=== PATIENT | male | born 1945 | race Caucasian/White ===

== ENCOUNTER 2018-10-25 16:09 | Outpatient (REF) | payer MEDICARE, MEDICAID, SELFPAY ==
[2018-10-25 19:53] LABS: C-Reactive Protein 6.04 mg/dL (0.0-0.3); CREATININE 0.73 mg/dL (0.70-1.30); Uric Acid 4.6 mg/dL (3.5-7.2)
[2018-10-25 20:05] LABS: Hemoglobin A1C 6.2 % (4.5-6.2)
[2018-10-25 21:20] LABS: ESR 23 mm/hr (1-20)
== END 2018-10-25 16:29 ==
LOC: NCHCN 16:09
PROVIDERS: PCP Physician Assistant; Visit Provider Internal Medicine
DX: M11.80 Other specified crystal arthropathies, unspecified site (principal); R73.03 Prediabetes
CPT/HCPCS: 85652; 82565; 83036; 84550; 86140

== ENCOUNTER 2019-01-15 10:02 | Outpatient (CLI) | payer MEDICARE, MEDICAID, SELFPAY ==
--- NOTE | 2019-01-15 06:00 | DI.RAD_ITS ---
EXAM: XR PAIN CLINIC LUMBAR SP 2V CLINICAL HISTORY: Lumbar Epidural Steroid injection, Lumbar radiculopathy TECHNIQUE: Fluoroscopy was provided for the referring physician for guidance with performing injecti on procedure. Fluoro time: 48.2 sec, 31.45 mGy COMPARISON: No exams were available for comparison FINDINGS: Please see procedure note for details.
[2019-01-15 10:25] VITALS: BP 120/76; PULSE 70; RESP 20; TEMP 36.8; O2SAT 95
--- NOTE | 2019-01-15 11:06 | PDOC.PAIN_ITS ---
Pain Clinic Procedure Note Procedure Note Procedure Note: PROCEDURE NOTE CAUDAL EPIDURAL STERIOID INJECTION Date of Service: January 15, 2019 Patient: PAWAN AKINS Provider: RAMOS BULL MD PAWAN AKINS has been referred to the [facility] for caudal epidural steroid injection. Pre-operative diagnosis: lumbar spinal stenosis, lumbar radiculopathy Post-operative diagnosis: same as above COMMENTS: Referring provider: Magali Peter Symptoms: back and leg pain Imaging reviewed: MRI L spine reviewed PAWAN was interviewed and the medical record was reviewed. There were no medical, pharmacologic, radiographic or other structural contraindications to attempting fluoroscopically guided epidural steroid injection. Risks and expected side effects as well as potential benefit of the procedure were reviewed with Mr AKINS, and his voiced concerns were addressed. The printed consent form was signed and witnessed. Standard time-out procedure was performed. Km AKINS was placed in the prone position on the fluoroscopy table and au tomated blood pressure cuff and pulse oximeter applied. The skin entry point for entering/approaching the epidural space by a caudal approach through the sacral hiatus ed identified with surgical skin marking. Following thorough chlorhexidine preparation x 2 of the skin and draping and 1% lidocaine infiltration of the skin entry point and subcutaneous tissues, a 17 gauge Touhy needle was placed under fluoroscopic guidance into the epidural space. Needle tip placement and depth were aided and confirmed by fluoroscopy in the lateral and AP position. There was no paresthesia or return of blood or CSF through the needle. 1 cc of Omnipaque 240 was injected with clear epidural spread confirmed with fluoroscopy. An Arrow 19G radio-opaque epidural catheter was advanced into the epidural space to the L5-S1 level, it was difficult to thread beyond that level, and 2 cc of Omnipaque 240 was injected with clear epidural spread. 80 mg of Depomedrol was injected. There was no unusual discomfort expressed by PAWAN . The needle and catheter were then flushed with 2 cc of 1% Lidocaine and 1cc of preservative free normal saline and they were removed without difficulty. (48 cc of Omnipaque was wasted) Mr AKINS's vital signs were stable throughout the procedure and were as recorded in the docflowsheet by the nursing staff. If given, dosages of intravenous drugs for anxiolysis and analgesia were documented in MAR. Follow up plans and appointments were discussed with Mr AKINS. Post procedure instruction was given as documented in nursing documentation and having met discharge criteria, he was discharged from the [facility]. COMMENTS: No apparent complications. This procedure can be completed up to 3 times per 12 months. Repeat on prn basis. I personally completed the entire procedure. Luiz Lilly MD [employer] Supervisor of Anesthesiology/[facility] [employer] at [facility] ABPN - Subspecialty board certification in Pain Medicine
[2019-01-15] MEDS: Omnipaque 240 MG/ML 50 ML BTL IJ (11:43)
[2019-01-15] MEDS: methylPREDNISolone ACETATE 80 MG/ML VIAL IJ (11:44)
[2019-01-15 11:47] VITALS: BP 140/92; PULSE 86; RESP 18; O2SAT 96
== END 2019-01-15 10:22 ==
PROVIDERS: PCP Internal Medicine; Visit Provider Internal Medicine
DX: M48.061 Spinal stenosis, lumbar region without neurogenic claudication (principal); M54.16 Radiculopathy, lumbar region
CPT/HCPCS: 62321; 72100; J1040; Q9967

== ENCOUNTER 2019-10-29 12:29 | Outpatient (CLI) | payer MEDICARE, MEDICAID, SELFPAY ==
--- NOTE | 2019-10-29 07:00 | DI.RAD_ITS ---
EXAM: XR PAIN CLINIC LUMBAR SP 2V CLINICAL HISTORY: Dx: Lumbar Radiculopathy. TECHNIQUE: Fluoroscopy was provided for the referring physician for guidance with performing injecti on procedure. COMPARISON: No exams were available for comparison FINDINGS: Please see procedure note for details. Fluoro Time: 38.9 seconds RADIATION DOSE DELIVERED:
--- NOTE | 2019-10-29 12:48 | PDOC.PAIN ---
Pain Clinic Procedure Note Procedure Note Procedure Note: PROCEDURE NOTE CAUDAL EPIDURAL STERIOID INJECTION Date of Service: October 28, 2018 Patient: PAWAN AKINS Provider: RAMOS BULL MD PAWAN AKINS has been referred to the [facility] for repeat caudal epidural steroid injection. Pre-operative diagnosis: lumbar spinal stenosis, lumbar radiculopathy Post-operative diagnosis: same as above COMMENTS: Referring provider: Magali Peter Symptoms: back and leg pain Imaging reviewed: MRI L spine reviewed Patient underwent caudal KOURTNEY on 12/2018 which provided 3-4 months of pain relief. PAWAN was interviewed and the medical record was reviewed. There were no medical, pharmacologic, radiographic or other structural contraindications to attempting fluoroscopically guided epidural steroid injection. Risks and expected side effects as well as potential benefit of the procedure were reviewed with Mr AKINS, and his voiced concerns were addressed. The printed consent form was signed and witnessed. Standard time-out procedure was performed. Mr AKINS was placed in the prone position on the fluoroscopy table and automated blood pressure cuff and pulse oximeter applied. The skin entry point for entering/approaching the epidural space by a caudal approach through the sacral hiatus ed identified with surgical skin marking. Following thorough chlorhexidine preparation x 2 of the skin and draping and 1% lidocaine infiltration of the skin entry point and subcutaneous tissues, a 17 gauge Touhy needle was placed under fluoroscopic guidance into the epidural space. Needle tip placement and depth were aided and confirmed by fluoroscopy in the lateral and AP position. There was no paresthesia or return of blood or CSF through the needle. 1 cc of Omnipaque 240 was injected with clear epidural spread confirmed with fluoroscopy. An Arrow 19G radio-opaque epidural catheter was advanced into the epidural space to the L5-S1 level, it was difficult to thread beyond that level, and 2 cc of Omnipaque 240 was injected with clear epidural spread. 80 mg of Depomedrol was injected. There was no unusual discomfort expressed by PAWAN . The needle and catheter were then flushed with 1 cc of 1% Lidocaine and 1cc of preservative free normal saline and they were removed without difficulty. (48 cc of Omnipaque was wasted) Mr AKINS's vital signs were stable throughout the procedure and were as recorded in the docflowsheet by the nursing staff. If given, dosages of intravenous drugs for anxiolysis and analgesia were documented in MAR. Follow up plans and appointments were discussed with Mr AKINS. Post procedure instruction was given as documented in nursing documentation and having met discharge criteria, he was discharged from the [facility]. COMMENTS: No apparent complications. This procedure can be completed up to 3 times per 12 months. Repeat on prn basis. I personally completed the entire procedure. Luiz Lilly MD Online Advertising Director of Anesthesiology/[facility] [employer] at [facility] ABPN - Subspecialty board certification in Pain Medicine
[2019-10-29 12:59] VITALS: BP 115/79; PULSE 76; RESP 16; TEMP 36.7; O2SAT 97
[2019-10-29] MEDS: Omnipaque 240 MG/ML 50 ML BTL IJ (13:31)
[2019-10-29] MEDS: methylPREDNISolone ACETATE 80 MG/ML VIAL IJ (13:31)
[2019-10-29 13:52] VITALS: BP 175/90; PULSE 84; RESP 18; O2SAT 94
== END 2019-10-29 12:49 ==
PROVIDERS: PCP Internal Medicine; Visit Provider Internal Medicine
DX: M48.062 Spinal stenosis, lumbar region with neurogenic claudication (principal); M54.16 Radiculopathy, lumbar region
CPT/HCPCS: 62323; 72100; J1040; Q9967

== ENCOUNTER 2019-11-07 14:16 | Outpatient (REF) | payer MEDICARE, MEDICAID, SELFPAY ==
[2019-11-07 19:43] LABS: ALT 52 U/L (16-63); AST 24 U/L (15-37); Albumin 3.9 g/dL (3.4-5.0); Alkaline Phosphatase 112 U/L (46-116); Anion Gap 6.2 mmol/L (3-11); BUN 15 mg/dL (7-18); Bilirubin, Total 0.4 mg/dL (0.2-1.0); CO2 30.8 mmol/L (21.0-32.0); CREATININE 0.85 mg/dL (0.70-1.30); Calcium 9.4 mg/dL (8.5-10.1); Calculated LDL 121 mg/dL (<100); Chloride 103 mmol/L (98-107); Cholesterol 201 mg/dL (<200); Glucose 98 mg/dL (74-106); HDL Cholesterol 51 mg/dL (40-60); Potassium 4.2 mmol/L (3.5-5.1); Sodium 140 mmol/L (136-145); TSH (W/Ref FT4) 1.58 uIU/mL (0.36-3.74); Total Protein 7.2 g/dL (6.4-8.2); Triglyceride 149 mg/dL (<150)
== END 2019-11-07 14:36 ==
LOC: NCHCN 14:16
PROVIDERS: PCP Internal Medicine; Visit Provider Physician Assistant
DX: E78.5 Hyperlipidemia, unspecified (principal); R73.03 Prediabetes
CPT/HCPCS: 80053; 80061; 84443

== ENCOUNTER 2020-02-27 07:45 | Outpatient (CLI) | payer MEDICARE, MEDICAID, SELFPAY ==
[2020-02-27 07:55] VITALS: BP 132/84; PULSE 72; RESP 17; TEMP 36.6; O2SAT 93
[2020-02-27] MEDS: methylPREDNISolone ACETATE 80 MG/ML VIAL IJ (08:29)
--- NOTE | 2020-02-27 08:29 | PDOC.PAIN ---
Pain Clinic Procedure Note Procedure Note Procedure Note: Date of procedure: February 27, 2020 CAUDAL EPIDURAL STEROID WITH CATHETER INJECTION PROCEDURE NOTE COMMENTS: Excellent success with this procedure in the past X 2 (10/29/19 and 01/15/2019). DX: Lumbosacral radiculopathy PAWAN AKINS has been referred to the [facility] for lumbar epidural steroid injection. Patient was greeted by the nurse who verified patients name and . Patient was then taken to the fluoroscopy suite. Patient was interviewed and the medical record reviewed. There were no medical, pharmacologic, radiographic, or other structural contraindications to attempting fluoroscopically guided lumbar epidural steroid injection. Risks and expected side effects as well as potential benefits of the procedure were reviewed and voiced concerns addressed. The patient consent form was signed and witnessed. Standard time-out procedure was performed. Patient was placed in the prone position on the fluoroscopy table and automated blood pressure cuff and pulse oximeter applied. The skin entry point for entering/approaching the epidural space at the sacral hiatus and marked. Following thorough chlorhexadine preparation of the skin and draping and 1% lidocaine infiltration of the skin entry point and subcutaneous tissues, a 17 gauge Touhy needle was placed under fluoroscopic guidance and with loss of resistance technique into the epidural space. Needle tip placement and depth were aided and confirmed by fluoroscopy. There was no paresthesia or return of blood or CSF through the needle. An Arrow cath was thread to the L5-S1 and 1 cc's of Omnipaque 240 was injected with clear epidural spread confirmed with fluoroscopy. 80mg depomedrol was injected. 1cc of 1% Lidocaine was then injected to flush the needle. The needle was removed without difficulty. There was not any unusual discomfort expressed. Vital signs were stable throughout the procedure and were as recorded in nursing records. Follow up plans and appointments were discussed.Post procedure instruction was given as documented in nursing records and having met discharge criteria and was discharged from the [facility]. COMMENTS: The procedure can be completed up to 3 times per 12 months if it is found to be helpful. Arron Johnson DO, MPH Pain Management
--- NOTE | 2020-02-27 08:30 | DI.RAD_ITS ---
EXAM: XR PAIN CLINIC LUMBAR SP 2V CLINICAL HISTORY: Dx: Lumbar Radiculopathy TECHNIQUE: 2D and realtime digital imaging was performed. CONTRAST MATERIAL: Refer to procedure report. COMPARISON: No exams were available for comparison FINDINGS: Fluoroscopy was provided for Dr. Johnson during the performance of a lumbar epidural steroid injection. Please refer to the procedure report for complete details. Fluoro time: 26.5 seconds IMPRESSION:
[2020-02-27] MEDS: Omnipaque 240 MG/ML 50 ML BTL IJ (08:31)
[2020-02-27 08:50] VITALS: BP 132/83; PULSE 79; RESP 17; O2SAT 95
== END 2020-02-27 08:05 ==
PROVIDERS: PCP Internal Medicine; Visit Provider Preventive Medicine Occupational Medicine
DX: M54.17 Radiculopathy, lumbosacral region (principal)
CPT/HCPCS: 62323; 72100; J1040; Q9967

== ENCOUNTER 2020-07-09 14:24 | Outpatient (CLI) | payer MEDICARE, MEDICAID, SELFPAY ==
[2020-07-09 14:34] VITALS: BP 116/80; PULSE 78; RESP 17; TEMP 36.5; O2SAT 96
--- NOTE | 2020-07-09 15:06 | DI.RAD_ITS ---
Exam(s) XR PAIN CLINIC LUMBAR SP 2V EXAM: XR PAIN CLINIC LUMBAR SP 2V CLINICAL HISTORY: Dx:Lumbar Radiculopathy TECHNIQUE: 2D and realtime digital imaging was performed. Radiologist not present. CONTRAST MATERIAL: None. COMPARISON: No exams were available for comparison FINDINGS: Fluoroscopy was provided for pain management therapy performed for lumbar epidural steroid injection Please refer to procedure report or details. Cumulative dose: Ka,r=16.63 mGy IMPRESSION: RADIATION DOSE DELIVERED:
[2020-07-09] MEDS: methylPREDNISolone ACETATE 40 MG/ML VIAL IJ (15:08)
[2020-07-09] MEDS: Omnipaque 240 MG/ML 50 ML BTL IJ (15:08)
[2020-07-09 15:09] VITALS: BP 113/83; PULSE 74; RESP 17; O2SAT 96
--- NOTE | 2020-07-09 15:10 | PDOC.PAIN ---
Pain Clinic Procedure Note Procedure Note Procedure Note: PROCEDURE NOTE CAUDAL EPIDURAL STERIOID INJECTION Date of Service: July 09, 2020 Patient: PAWAN AKINS Provider: Arron Johnson DO, MPH PAWAN AKINS has been referred to the [facility] for caudal epidural steroid injection. Pre-operative diagnosis: Lumbosacral radiculopathy Post-operative diagnosis: Same COMMENTS: He last had this procedure on 02/27/2020, 10/29/19, and 01/15/2019. PAWAN was interviewed and the medical record was reviewed. There were no medical, pharmacologic, radiographic or other structural contraindications to attempting fluoroscopically guided epidural steroid injection. Risks and expected side effects as well as potential benefit of the procedure were reviewed with Mr AKINS, and HIS voiced concerns were addressed. The printed consent form was signed and witnessed. Standard time-out procedure was performed. Mr AKINS was placed in the prone position on the fluoroscopy table and automated blood pressure cuff and pulse oximeter applied. The skin entry point for entering/approaching the epidural space by a caudal approach through the sacral hiatus ed identified with surgical skin marking. Following thorough chlorhexidine preparation x 2 of the skin and draping and 1% lidocaine infiltration of the skin entry point and subcutaneous tissues, a 17 gauge Touhy needle was placed under fluoroscopic guidance into the epidural space. Needle tip placement and depth were aided and confirmed by fluoroscopy in the lateral and AP position. There was no paresthesia or return of blood or CSF through the needle. 1 cc of Omnipaque 240 was injected with clear epidural spread confirmed with fluoroscopy. An Arrow 19G radio-opaque epidural catheter was advanced into the epidural space to the S1 level and 2 cc of Omnipaque 240 was injected with clear epidural spread. 40 mg of Depomedrol was injected. There was no unusual discomfort expressed by PAWAN . The needle and catheter were then flushed with 2 cc of 1% Lidocaine and they were removed without difficulty. (47 cc of Omnipaque was wasted) Km AKINS's vital signs were stable throughout the procedure and were as recorded in the docflowsheet by the nursing staff. If given, dosages of intravenous drugs for anxiolysis and analgesia were documented in MAR. Follow up plans and appointments were discussed with Km AKINS. Post procedure instruction was given as documented in nursing documentation and having met discharge criteria, @HE@ was discharged from the [facility]. COMMENTS: No apparent complications. This procedure can be completed up to 3 times per 12 months. I personally completed the entire procedure. ARRON JOHNSON DO, MPH Economic History Teacher of Anesthesiology/[facility] [employer] at [facility] [employer], Pain Medicine Fellowship [employer]BPM[employer]R - Subspecialty board certification in Pain Medicine
== END 2020-07-09 14:25 | disposition home or self-care (01) ==
PROVIDERS: PCP Internal Medicine; Visit Provider Preventive Medicine Occupational Medicine
DX: M54.17 Radiculopathy, lumbosacral region (principal)
CPT/HCPCS: 62323; 72100; J1030; Q9967

== ENCOUNTER 2020-07-16 10:14 | Outpatient (REF) | payer MEDICARE, MEDICAID, SELFPAY | END 2020-07-16 10:15 | disposition home or self-care (01) | LOC: NCHCN 10:14 | PROVIDERS: PCP Internal Medicine; Visit Provider Physician Assistant | DX: N40.1 Benign prostatic hyperplasia with lower urinary tract symptoms (principal); Z12.5 Encounter for screening for malignant neoplasm of prostate | CPT/HCPCS: 84153 ==

== ENCOUNTER 2020-09-29 14:37 | Outpatient (REF) | payer MEDICARE, MEDICAID, SELFPAY ==
[2020-09-29 18:47] LABS: HCT 49.3 % (40.0-50.0); HGB 16.6 g/dL (13.5-17.5); MCH 30.5 pg (27.0-33.0); MCHC 33.7 % (32.0-36.0); MCV 90.5 fL (80-95); MPV 10.5 fL (8.0-11.0); Platelet Count 198 10^3/uL (130-400); RBC 5.45 10^6/uL (4.36-5.78); RDW 12.8 % (11.8-14.1); RDW-SD 42.5 fL; WBC 7.78 10^3/uL (4.4-10.8)
[2020-09-29 19:08] LABS: ALT 46 U/L (16-63); AST 33 U/L (15-37); Albumin 3.8 g/dL (3.4-5.0); Alkaline Phosphatase 106 U/L (46-116); Anion Gap 6.4 mmol/L (3-11); BUN 17 mg/dL (7-18); Bilirubin, Total 0.7 mg/dL (0.2-1.0); CO2 28.6 mmol/L (21.0-32.0); CREATININE 0.8 mg/dL (0.70-1.30); Calcium 9.1 mg/dL (8.5-10.1); Chloride 105 mmol/L (98-107); Glucose 111 mg/dL (74-106); Potassium 4.3 mmol/L (3.5-5.1); Sodium 140 mmol/L (136-145); Total Protein 7.2 g/dL (6.4-8.2)
[2020-09-29 19:24] LABS: Prothrombin Time 10.3 sec (9.3-11.0)
== END 2020-09-29 14:38 | disposition home or self-care (01) ==
LOC: NCHCN 14:37
PROVIDERS: PCP Internal Medicine; Visit Provider Physician Assistant
DX: Z01.818 Encounter for other preprocedural examination (principal)
CPT/HCPCS: 80053; 85027; 85610

== ENCOUNTER 2021-01-08 09:56 | Outpatient (CLI) | payer MEDICARE, MEDICAID, SELFPAY ==
--- NOTE | 2021-01-08 09:15 | DI.RAD_ITS ---
Exam(s) XR ANKLE RT COMPLETE EXAM: XR ANKLE RT COMPLETE CLINICAL HISTORY: eval R ankle pain. TECHNIQUE: 2D digital imaging was performed. 3D weightbearing views. COMPARISON: No exams were available for comparison FINDINGS: BONES: No acute fracture is present. No bony destructive lesion is seen. Spur at medial malleolus. Anterior spurring at the tibial talar joint. Heel spur. Degenerative changes and at the talonavicu lar joint with dorsal spurring. No visible talar dome defect. JOINTS: The ankle mortise is normally aligned. SOFT TISSUE: Swelling around the malleoli. IMPRESSION: Degenerative changes and heel spur. DATA REPOSITORY: RADIATION DOSE DELIVERED:
== END 2021-01-08 09:57 | disposition home or self-care (01) ==
LOC: DIORS 09:57
PROVIDERS: PCP Internal Medicine; Referring Provider Internal Medicine; Visit Provider Student in an Organized Health Care Education/Training Program
DX: M25.571 Pain in right ankle and joints of right foot (principal); M21.41 Flat foot [pes planus] (acquired), right foot
CPT/HCPCS: 99203; 73610

== ENCOUNTER 2021-03-03 15:54 | Outpatient (REF) | payer MEDICARE, MEDICAID, SELFPAY ==
[2021-03-03 21:46] LABS: Vitamin B12 504 pg/mL (193-986)
== END 2021-03-03 15:55 | disposition home or self-care (01) ==
LOC: NCHCN 15:54
PROVIDERS: PCP Internal Medicine; Visit Provider Physician Assistant
DX: R20.8 Other disturbances of skin sensation (principal)
CPT/HCPCS: 82607

== ENCOUNTER 2021-03-15 02:07 | Outpatient (CLI) | payer MEDICARE, MEDICAID, SELFPAY ==
--- NOTE | 2021-03-15 09:37 | DI.RAD_ITS ---
Exam(s) XR HIP PELVIS ADULT BL EXAM: XR HIP PELVIS ADULT BL CLINICAL HISTORY: BILAT OA HIPS, M16.0. TECHNIQUE: 2D digital imaging was performed. COMPARISON: MR MRI LUMBAR WO from 11/08/2018 FINDINGS: No evidence of pelvic nor hip fracture. No joint space narrowing in the hips. No osteophytes seen. Sacroiliac joints appear unremarkable. There is a 1.3 x 1 point cm sclerotic bone lesion in the med ial right iliac bone adjacent to the sacroiliac joint. May possibly represent a benign bone island. IMPRESSION: DATA REPOSITORY: RADIATION DOSE DELIVERED:
== END 2021-03-15 02:27 ==
PROVIDERS: PCP Internal Medicine; Visit Provider Physician Assistant
DX: M16.0 Bilateral primary osteoarthritis of hip (principal); M89.8X8 Other specified disorders of bone, other site
CPT/HCPCS: 73521

== ENCOUNTER 2022-01-05 20:00 | Outpatient (REF) | payer MEDICARE, MEDICAID, SELFPAY ==
[2022-01-05 18:42] LABS: Abs Immature Grans 0.03 10^3/uL (0.0-0.06); Absolute Basophil Count 0.03 10^3/uL (0.0-0.2); Absolute Eosinophil Count 0.02 10^3/uL (0.0-0.7); Absolute Monocyte Count 0.89 10^3/uL (0.1-0.8); Basophils % 0.3; Eosinophils % 0.2; HCT 46.9 % (40.0-50.0); HGB 15.8 g/dL (13.5-17.5); Immature Grans % 0.3; Lymphocytes % 19.2; MCH 30.4 pg (27.0-33.0); MCHC 33.7 % (32.0-36.0); MCV 90 fL (80-95); MPV 10.1 fL (8.0-11.0); Monocytes % 8.2; Neutrophils % 71.8; Platelet Count 233 10^3/uL (130-400); RDW 12.9 % (11.8-14.1); RDW-SD 42.5 fL; WBC 10.86 10^3/uL (4.4-10.8)
[2022-01-05 18:43] LABS: Absolute Lymphocyte Count 2.09 10^3/uL (1.2-3.4)
[2022-01-05 18:49] LABS: Anion Gap 8.5 mmol/L (3-11); BUN 17 mg/dL (7-18); CO2 27.5 mmol/L (21.0-32.0); CREATININE 0.8 mg/dL (0.70-1.30); Calcium 8.8 mg/dL (8.5-10.1); Chloride 103 mmol/L (98-107); Estimated GFR 92.87 (mL/min/1.73m2); Glucose 105 mg/dL (74-106); Potassium 3.8 mmol/L (3.5-5.1); Sodium 139 mmol/L (136-145); Uric Acid 5.3 mg/dL (3.5-7.2)
== END 2022-01-05 20:01 | disposition home or self-care (01) ==
LOC: NCHCN 20:00
PROVIDERS: PCP Internal Medicine; Visit Provider Nurse Practitioner Family
DX: M79.641 Pain in right hand (principal)
CPT/HCPCS: 80048; 84550; 85025

== ENCOUNTER 2022-03-22 10:29 | Emergency (ER) | payer MEDICARE, MEDICAID, SELFPAY ==
[2022-03-22 10:36] VITALS: BP 144/75; PULSE 94; TEMP 37.5; O2SAT 93
[2022-03-22] MEDS: Ibuprofen 600 MG TAB PO (10:58)
--- NOTE | 2022-03-22 10:58 | ED.GENADUL_ITS ---
Discharge Plan Disposition Patient Disposition: Home Condition: Stable Discharge Details Clinical Impression: Knee pain, left Primary Care Provider: Saul Mandujano ED Provider: Tanner Ware Home Meds and New Rx's Prescriptions: New prednisone 20 mg tablet 60 mg PO DAILY 5 Days Qty: 15 0RF Continued multivitamin Tablet 1 tab PO DAILY garlic 500 mg Capsule 500 mg PO DAILY Joint Support Complex [id number] mg Capsule 2 cap PO DAILY Rx Instructions: does not take. 03/22/22 ibuprofen 200 mg Tablet 400 mg PO Q6H PRN pregabalin [Lyrica] 75 mg Capsule 75 mg PO BID hydrocodone-acetaminophen 7.5-325 mg Tablet 1 tab PO TID PRN Discharge Instructions Instructions: Knee Pain (ED) Additional Instructions: Follow up with your primary care provider within 1 week if the knee becomes red, you have fevers or severe worsening pain return to the emergency department Medical Decision Making 76 yo male with hx of chronic right ankle pain, chart diagnosis of pseudogout though he is not sure if he has this or not, who comes in with 3 days of left knee pain. HE states he was working with [employer] and was on his knees a lot 3 days ago. Denies any falls or trauma. Shortly after this noticed pain in the left anterior knee which has continued so came here. Denies fevers, chills, redness of the knee or warmth. HE does feel it is more swollen then normal. HE arrives stable apperas well in no distress. HE has pain in the medial left knee joint line with minimal swelling on exam, no warmth or erythema, intact distal sensation, no calf tenderness or posterior knee tenderness, normal cap refill in the foot. Suspect strain vs contusion and less likely meniscus injury, no findings to suggest septic joint. Will obtain xray and reevaluate. xray on my read unremarkable, awaiting vrad read. PT stable no changes in exam, still no warmth or erythema. Offered to perform arthrocentesis but given clinical suspicion low for septic joint patient declined to have this done which I feel is reasonable. Suspect arthritis and possible pseudogout vs strain. Pt states he does have crutches at home to use and doesn't want a pair here. Will trial short course of prednisone, advised to f/u with pcp and return precautions given Differential Diagnosis Differential Diagnosis: bursitis, pseudogout, strain, contusion Imaging Data Radiologic Study: Attestation: I personally reviewed and interpreted this imaging study as follows: Imaging: X-Ray My impression: no acute findings HPI General Mode of arrival: EMS . Date/Time Provider Initiated Documentation: 03/22/22 10:41 . Limitations to Documentation: no limitations . Information obtained by: patient . History of Present Illness 76 year old M presents to the emergency department with the chief complaint of left knee pain, described as moderate, Quality is described as aching, and is localized to the left. Patient reports no radiation. Patient started experiencing this day(s) (3) and it has been constant. Rest improves symptom(s), Movement worsens symptoms . Patient notes no other symptoms.. Related Data Home Medications Medication Instructions Recorded Confirmed garlic 500 mg capsule 500 mg PO DAILY 12/14/18 03/22/22 glucosamine 500 mg-msm 100 mg-vit 2 cap PO DAILY 12/14/18 03/22/22 C 20 yc-hjhrh-xhvv-primrose capsule (Joint Support Complex) multivitamin 1 tab PO DAILY 12/14/18 03/22/22 ibuprofen 200 mg tablet 400 mg PO Q6H PRN 01/15/19 03/22/22 pregabalin 75 mg capsule (Lyrica) 75 mg PO BID 10/29/19 03/22/22 hydrocodone 7.5 mg-acetaminophen 1 tab PO TID PRN 03/22/22 03/22/22 325 mg tablet prednisone 20 mg tablet 60 mg PO DAILY 5 days #15 tabs 03/22/22 Previous Rx's Medication Instructions Recorded prednisone 20 mg tablet 60 mg PO DAILY 5 days #15 tabs 03/22/22 Allergies Allergy/AdvReac Type Severity Reaction Status Date / Time No Known Allergies Allergy Unverified 01/08/21 09:09 General Stated Complaint: Orthopedic KOURTNEY: 4 Review of Systems All systems reviewed & are unremarkable except as noted in HPI and below Constitutional Constitutional: Denies chills, Denies fever(s) and Denies weakness Cardiovascular Cardiovascular: Denies chest pain and Denies dyspnea Respiratory Respiratory: Denies cough and Denies dyspnea Gastrointestinal Gastrointestinal: Denies abdominal pain, Denies nausea and Denies vomiting Integumentary/Breasts Skin/Breast: Denies rash Neurologic Neurologic: Denies weakness PFSH All Active Problems (Updated 03/22/22 @ 12:37 by Tanner Ware MD) Knee pain, left (Acute) Acquired pes planus of right foot (Acute) Arthralgia of hindfoot (Acute) Right ankle pain (Acute) Medical History (Updated 03/22/22 @ 12:37 by Tanner Ware MD) Bilateral primary osteoarthritis of hip Hyperlipidemia Left knee pain Left sided sciatica Left wrist pain Pre-diabetes Pseudogout Spermatocele of epididymis, multiple Spondylosis Social History (Updated 12/24/18 @ 11:52 by Alyssa Judd) Smoking/Tobacco Use Status: Never Smoking risk assessment performed?: Yes Alcohol Intake: current Alcohol Intake frequency: 0-2 drinks per day Alcohol type: beer Drug use: Daily Substance use type: marijuana Household members: other What is your relationship status?: don't know Panel score (0-1 are the most socially isolated patients): 0 What type of physical activity do you participate in: swimming Do you feel safe at home: Yes Do you feel safe in your relationship?: Yes Exam Const General: no acute distress Orientation: alert HENMT Head: normal to inspection Ears: external ears normal General nose exam: external nose normal Mouth: moist mucous membranes Eyes General: appearance normal, both eyes and all related structures Neck Neck: normal visual inspection Resp Effort & Inspection: normal respiratory effort and able to speak in complete sentences Cardio Rate: regular rate Skin General skin exam: no rashes or lesions noted Neuro General: patient alert and patient oriented x3 Extrem General: capillary refill normal Psych Mental Status: mental status grossly normal Course Vital Signs Vital signs: Vital Signs Temperature 37.5 C 03/22/22 10:36 Pulse 94 H 03/22/22 10:36 Blood Pressure 144/75 H 03/22/22 10:36 Pulse Oximetry 93 03/22/22 10:36 Temperature 37.5 C 03/22/22 10:36 Temperature Source Tympanic 03/22/22 10:36 Pulse 94 H 03/22/22 10:36 Respiratory Effort Non-Labored 03/22/22 10:42 Blood Pressure 144/75 H 03/22/22 10:36 Blood Pressure Position Sitting 03/22/22 10:36 Pulse Oximetry 93 03/22/22 10:36 Oxygen Delivery Method Room Air 03/22/22 10:36 Oxygen Flow Rate 0 03/22/22 10:36 PAWSS Have you Been Recently Intoxicated or Drunk Within the Last 30 days?: No Have you Ever Experienced Previous Episodes of Alcohol Withdrawal?: No Have you ever Experienced Withdrawal Seizures?: No Have you ever Experienced Delirium Tremens(DT)s?: No Have you ever undergone Alcohol Rehabilitation Treatment (i.e, inpt ot outpatient treatment programs)?: No Have you ever Experienced Blackouts?: No Have you ever Combined Alcohol with other Downers within the last 90 days?: No Have you ever Combined Alcohol with any other Substance of Abuse during the last 90 days?: No Positive Blood Alcohol level on Presentation? [PCS.BAL]: No Evidence of Increased Autonomic Activity (i.e. HR>120, tremor, sweating, agitation, nausea)?: No Result: 0
--- NOTE | 2022-03-22 11:25 | DI.RAD_ITS ---
Exam(s) XR KNEE LT 3V AP,LAT,KARINA EXAM: XR KNEE LT 3V AP,LAT,KARINA CLINICAL HISTORY: left knee pain. TECHNIQUE: 2D digital imaging was performed of the left knee. Three images were obtained. AP, late ral and PA tunnel views were obtained. COMPARISON: No exams were available for comparison FINDINGS: BONES: No acute fracture is present. No bony destructive lesion is seen. JOINTS: There is moderate narrowing of the medial femoral tibial joint space. There is periarticular spurring in all 3 joint compartments. Chondrocalcinosis is seen in the femoral tibial joint. There is a moderate joint effusion. SOFT TISSUE: Normal. IMPRESSION: Degenerative changes of the left knee. No acute abnormality. DATA REPOSITORY: RADIATION DOSE DELIVERED:
== END 2022-03-22 14:02 | disposition home or self-care (01) ==
PROVIDERS: Emergency Provider Emergency Medicine; PCP Internal Medicine
DX: M25.562 Pain in left knee (principal)
CPT/HCPCS: 73562; 99283; 99282

== ENCOUNTER 2022-11-08 14:05 | Emergency (ER) | payer MEDICARE, MEDICAID, SELFPAY ==
[2022-11-08 14:17] VITALS: BP 121/69; PULSE 83; RESP 18; TEMP 37.5; O2SAT 93
--- NOTE | 2022-11-08 15:06 | ED.GENADUL_ITS ---
Discharge Plan Disposition Patient Disposition: Home Discharge Details Clinical Impression: Back pain Primary Care Provider: Saul Mandujano ED Provider: Terri De León Home Meds and New Rx's Prescriptions: New diazepam [Valium] 5 mg tablet 5 mg PO BID PRNQty: 10 0RF prednisone 20 mg tablet 40 mg PO ONCE Qty: 10 0RF Continued multivitamin Tablet 1 tab PO DAILY garlic 500 mg Capsule 500 mg PO DAILY Joint Support Complex [id number] mg Capsule 2 cap PO DAILY Rx Instructions: does not take. 03/22/22 ibuprofen 200 mg Tablet 400 mg PO Q6H PRN pregabalin [Lyrica] 75 mg Capsule 75 mg PO BID hydrocodone-acetaminophen 7.5-325 mg Tablet 1 tab PO TID PRN Discharge Instructions Instructions: Back Pain (ED) Additional Instructions: Take prednisone daily as prescribed Take the Valium as needed for musculoskeletal pain, you may want to take this at night will likely make you very tired Do not combine this with any alcohol Take Tylenol 650 every 4 hours, do not exceed 3 g daily Should you develop worsening pain, fever, strength or sensation change, please return for reassessment Referrals: Saul Mandujano [Primary Care Provider] - Discharge Data Discharge Date/Time-TO BE ENTERED AT DEPARTURE: 11/08/22 15:26 Medical Decision Making 77-year-old male presents with back pain with radiation into his legs Denies any strength or sensation change. Denies groin numbness, lumbar spine tenderness, no clinical signs and symptoms consistent with cauda equina, neurovascularly intact, DTRs intact to bilateral lower extremities, distal pulses intact, no reproducible tenderness in patient's back, no flank tenderness or abdominal tenderness, specifically no abdominal bruit or pulsatile mass We will trial on steroids and Valium for home Return precautions reviewed and patient expressed understanding HPI General Date/Time Provider Initiated Documentation: 11/08/22 14:25 . HPI Narrative: This pleasant 77-year-old male presents with report of back pain with radiation into his left lower extremity and right lower extremity. States worse with movement. Has prior history of back surgery, states his symptoms are dissimilar. Denies any weakness to his extremities. States the pain started after he took a long walk to gather his pigs in the [place]. Denies any falls. Denies any abdominal pain, chest pain, sensation changes to his extremities. Denies any groin numbness or changes in bowel or bladder. Denies fever or ch ills. Related Data Home Medications Medication Instructions Recorded Confirmed garlic 500 mg capsule 500 mg PO DAILY 12/14/18 11/08/22 glucosamine 500 mg-msm 100 mg-vit 2 cap PO DAILY 12/14/18 11/08/22 C 20 zm-mfxgf-sgew-primrose capsule (Joint Support Complex) multivitamin 1 tab PO DAILY 12/14/18 11/08/22 ibuprofen 200 mg tablet 400 mg PO Q6H PRN 01/15/19 11/08/22 pregabalin 75 mg capsule (Lyrica) 75 mg PO BID 10/29/19 11/08/22 hydrocodone 7.5 mg-acetaminophen 1 tab PO TID PRN 03/22/22 11/08/22 325 mg tablet diazepam 5 mg tablet (Valium) 5 mg PO BID PRN #10 tabs 11/08/22 prednisone 20 mg tablet 40 mg PO ONCE #10 tabs 11/08/22 Previous Rx's Medication Instructions Recorded diazepam 5 mg tablet (Valium) 5 mg PO BID PRN #10 tabs 11/08/22 prednisone 20 mg tablet 40 mg PO ONCE #10 tabs 11/08/22 Allergies Allergy/AdvReac Type Severity Reaction Status Date / Time No Known Allergies Allergy Unverified 01/08/21 09:09 General Stated Complaint: Nk/Back Pain KOURTNEY: 4 PFSH All Active Problems (Updated 11/08/22 @ 15:11 by PAUL Perkins) Back pain (Acute) Acquired pes planus of right foot (Acute) Arthralgia of hindfoot (Acute) Right ankle pain (Acute) Medical History (Updated 11/08/22 @ 15:11 by PAUL Perkins) Bilateral primary osteoarthritis of hip Hyperlipidemia Left knee pain Left sided sciatica Left wrist pain Pre-diabetes Pseudogout Spermatocele of epididymis, multiple Spondylosis Social History (Updated 12/24/18 @ 11:52 by Alyssa Judd) Smoking/Tobacco Use Status: Never Smoking risk assessment performed?: Yes Alcohol Intake: current Alcohol Intake frequency: 0-2 drinks per day Alcohol type: beer Drug use: Daily Substance use type: marijuana Household members: other What is your relationship status?: don't know Panel score (0-1 are the most socially isolated patients): 0 What type of physical activity do you participate in: swimming Do you feel safe at home: Yes Do you feel safe in your relationship?: Yes Course Vital Signs Vital signs: Vital Signs Temperature 37.5 C 11/08/22 14:17 Pulse 83 11/08/22 14:17 Respiratory Rate 18 11/08/22 14:17 Blood Pressure 121/69 11/08/22 14:17 Pulse Oximetry 93 11/08/22 14:17 Temperature 37.5 C 11/08/22 14:17 Temperature Source Skin 11/08/22 14:17 Pulse 83 11/08/22 14:17 Respiratory Rate 18 11/08/22 14:17 Respiratory Effort Normal 11/08/22 14:22 Blood Pressure 121/69 11/08/22 14:17 Blood Pressure Position Sitting 11/08/22 14:17 Pulse Oximetry 93 11/08/22 14:17 Oxygen Delivery Method Room Air 11/08/22 14:17 Oxygen Flow Rate 0 11/08/22 14:17 Pain Level 10 11/08/22 14:17
[2022-11-08] MEDS: Acetaminophen 500 MG TAB 1000 MG PO (15:07)
[2022-11-08] MEDS: diazePAM 5 MG TAB PO (15:08)
[2022-11-08] MEDS: Ketorolac 15 MG/ML VIAL 10 MG IM (15:08)
[2022-11-08 15:23] VITALS: BP 142/80; PULSE 88; RESP 20; TEMP 36.8; O2SAT 98
== END 2022-11-08 15:26 | disposition home or self-care (01) ==
PROVIDERS: Emergency Provider Physician Assistant; PCP Internal Medicine
DX: M54.9 Dorsalgia, unspecified (principal)
CPT/HCPCS: 99283; 99284; J1885

== ENCOUNTER 2022-12-20 13:55 | Outpatient (REF) | payer MEDICARE, MEDICAID, SELFPAY ==
[2022-12-20 19:20] LABS: HCT 47.6 % (40.0-50.0); HGB 15.7 g/dL (13.5-17.5); MCH 29.9 pg (27.0-33.0); MCV 91 fL (80-95); MPV 10.1 fL (8.0-11.0); Platelet Count 243 10^3/uL (130-400); RBC 5.25 10^6/uL (4.36-5.78); RDW 13.2 % (11.8-14.1); RDW-SD 44.1 fL; WBC 6.79 10^3/uL (4.4-10.8)
[2022-12-20 20:25] LABS: ALT 37 U/L (16-63); AST 26 U/L (15-37); Albumin 3.6 g/dL (3.4-5.0); Alkaline Phosphatase 111 U/L (46-116); Anion Gap 10.4 mmol/L (3-11); BUN 17 mg/dL (7-18); Bilirubin, Total 0.4 mg/dL (0.2-1.0); CO2 24.6 mmol/L (21.0-32.0); CREATININE 0.8 mg/dL (0.70-1.30); Calcium 8.8 mg/dL (8.5-10.1); Chloride 106 mmol/L (98-107); Estimated GFR 92.29 (mL/min/1.73m2); Glucose 129 mg/dL (74-106); LDL CHOLESTEROL 122 mg/dL (<100); Sodium 141 mmol/L (136-145); Total Protein 7.1 g/dL (6.4-8.2)
== END 2022-12-20 13:56 | disposition home or self-care (01) ==
LOC: NCHCN 13:55
PROVIDERS: PCP Internal Medicine; Visit Provider Physician Assistant
DX: E66.9 Obesity, unspecified (principal); R73.03 Prediabetes; E78.5 Hyperlipidemia, unspecified
CPT/HCPCS: 80053; 83721; 85027; 83036

== ENCOUNTER 2023-07-13 19:24 | Outpatient (REF) | payer MEDICARE, MEDICAID, SELFPAY ==
[2023-07-13 19:34] LABS: Uric Acid 4.4 mg/dL (3.5-7.2)
[2023-07-14 11:28] LABS: Abs Immature Grans 0.04 10^3/uL (0.0-0.06); Absolute Basophil Count 0.05 10^3/uL (0.0-0.2); Absolute Eosinophil Count 0.05 10^3/uL (0.0-0.7); Absolute Lymphocyte Count 1.46 10^3/uL (1.2-3.4); Absolute Monocyte Count 0.76 10^3/uL (0.1-0.8); Absolute Neutrophil Count 6.88 10^3/uL (1.2-6.7); Basophils % 0.5 %; Eosinophils % 0.5 %; HCT 47.4 % (40.0-50.0); HGB 15.6 g/dL (13.5-17.5); Immature Grans % 0.4 %; Lymphocytes % 15.8 %; MCH 30.4 pg (27.0-33.0); MCHC 32.9 % (32.0-36.0); MCV 92 fL (80-95); Monocytes % 8.2 %; Neutrophils % 74.6 %; Platelet Count 263 10^3/uL (130-400); RBC 5.13 10^6/uL (4.36-5.78); RDW-SD 43.8 fL; WBC 9.24 10^3/uL (4.4-10.8)
[2023-07-14 11:34] LABS: Anion Gap 5.3 mmol/L (3-11); BUN 18 mg/dL (7-18); CO2 25.7 mmol/L (21.0-32.0); CREATININE 0.8 mg/dL (0.70-1.30); Calcium 9.2 mg/dL (8.5-10.1); Chloride 107 mmol/L (98-107); Estimated GFR 91.72 (mL/min/1.73m2); Glucose 175 mg/dL (74-106); Potassium 3.6 mmol/L (3.5-5.1); Sodium 138 mmol/L (136-145)
== END 2023-07-13 19:25 | disposition home or self-care (01) ==
LOC: NCHCN 19:24
PROVIDERS: PCP Internal Medicine; Visit Provider Physician Assistant
DX: M79.644 Pain in right finger(s) (principal)
CPT/HCPCS: 80048; 84550; 85025

== ENCOUNTER 2023-11-16 08:25 | Outpatient (CLI) | payer MEDICARE, MEDICAID, SELFPAY ==
[2023-11-16] VITALS (7 sets, daily range): BP systolic 120–188; BP diastolic 80–110; PULSE 69–83; RESP 17–24; TEMP 36.6; O2SAT 92–95
--- NOTE | 2023-11-16 06:00 | DI.RAD_ITS ---
Exam(s) XR PAIN CLINIC LUMBAR SP 2V EXAM: XR PAIN CLINIC LUMBAR SP 2V CLINICAL HISTORY: DX: Lumbar Radiculopathy TECHNIQUE: 2D and realtime digital imaging was performed. CONTRAST MATERIAL: Refer to procedure report. COMPARISON: No exams were available for comparison FINDINGS: Fluoroscopy was provided for Dr. Johnson during the performance of a right lumbar transforaminal epidur al steroid injection. Please refer to the procedure report for complete details. Ka,r=20.6 mGy IMPRESSION: RADIATION DOSE DELIVERED: 0.0 0.0 0
--- NOTE | 2023-11-16 08:58 | PDOC.PAIN_ITS ---
Date of service: 11/16/23 Time of Service: :24 Pain Managment Procedure Note Procedure Note Procedure Note: LUMBAR / SACRAL TRANSFORAMINAL INJECTION Phoenix Mosquera has been referred to the [facility] for a transforaminal nerve root block and steroid injection. COMMENTS: This is a direct referral from his spine surgeon (Dr. Dahl). Diagnosis: Lumbar radiculopathy Pre-procedure pain VAS: 10/10 Patient was interviewed and the medical record reviewed. There were no medical, pharmacologic, radiographic or other structural contraindications to attempting fluoroscopically guided transforaminal nerve root block and epidural steroid injection. Risks and expected side effects as well as potential benefit of the procedure were reviewed and voiced concerns addressed. The printed consent form was signed and witnessed. Standard time-out procedure was performed. Patient was placed in the prone position on the fluoroscopy table and automated blood pressure cuff and pulse oximeter applied. Fluoroscopy was utilized to i dentify the right L4 neural foramen between L4 and L5 . A skin ledy was made for the needle insertion site. A Chlorhexadine prep was carried out, and sterile drapes were applied. Local anesthesia was achieved in the skin and subcutaneous tissues. A 22 gauge curved tip spinal needle was then inserted, advanced with fluoroscopic guidance into the neural foramen, confirmed on the lateral view. After negative aspiration, 2 ml of Omnipaque 240 was injected confirming position in A/P and lateral views. This showed a good spread of dye transforaminally into the epidural space. There was no vascular update with contrast injection under continuous fluoroscopy and digital substraction. 15 mg of Dexamethasone was injected, followed by 0.5 ml of 1% Xylocaine flush for the nerve root block, as well. There was no unusual discomfort expressed.The needle was withdrawn. The patient tolerated the procedure well. A Band-Aid was appli ed. Vital signs were stable throughout the procedure and were as recorded in nursing records. If given, dosages of intravenous drugs for anxiolysis and analgesia were documented in nursing records. Follow up plans and appointments were discussed. Post procedure instruction was given as documented in nursing records and patient was discharged in the care of an identified warehouse delivery driver. COMMENTS: Post-procedure pain VAS: 4/10 Arron Johnson DO, MPH [facility]-Pain Management [facility] CC: Saul Mandujano
[2023-11-16] MEDS: Nerve Block Tray 1 EACH MC (09:28)
[2023-11-16] MEDS: Omnipaque 240 MG/ML 50 ML BTL IJ (09:28)
[2023-11-16] MEDS: Dexamethasone Sod. Phos./Pres-Free 10 MG/ML VIAL IJ (09:28)
== END 2023-11-16 08:26 | disposition home or self-care (01) ==
LOC: PC 08:25
PROVIDERS: PCP Internal Medicine; Visit Provider Preventive Medicine Occupational Medicine
DX: M54.50 Low back pain, unspecified (principal); M54.16 Radiculopathy, lumbar region
CPT/HCPCS: 64483; 72100; J1100; Q9967

== ENCOUNTER 2023-12-14 11:01 | Outpatient (REF) | payer MEDICARE, MEDICAID, SELFPAY ==
[2023-12-19 12:42] LABS: Codeine Negative ng/mL (Cutoff: 25); Dihydrocodeine 307 ng/mL (Cutoff: 25); Hydrocodone 731 ng/mL (Cutoff: 25); Hydromorphone 631 ng/mL (Cutoff: 25); Morphine Negative ng/mL (Cutoff: 25); Naloxone Negative ng/mL (Cutoff: 25); Norhydrocodone 776 ng/mL (Cutoff: 25); Noroxycodone Negative ng/mL (Cutoff: 25); Noroxymorphone Negative ng/mL (Cutoff: 25); Opiates Interpretation Positive.
== END 2023-12-14 11:02 | disposition home or self-care (01) ==
LOC: NCHCN 11:01
PROVIDERS: PCP Internal Medicine; Visit Provider Physician Assistant
DX: G89.4 Chronic pain syndrome (principal); Z51.81 Encounter for therapeutic drug level monitoring
CPT/HCPCS: 80361; 80362; 80365

== ENCOUNTER 2024-03-27 08:07 | Outpatient (CLI) | payer MEDICARE, MEDICAID, SELFPAY ==
--- NOTE | 2024-03-27 06:00 | DI.RAD_ITS ---
Exam(s) XR PAIN CLINIC LUMBAR SP 2V EXAM: XR PAIN CLINIC LUMBAR SP 2V CLINICAL HISTORY: DX: Lumbar Radiculopathy. TECHNIQUE: Fluoroscopy was provided for the referring physician for guidance with performing pain cl inic injection procedure. COMPARISON: No exams were available for comparison FINDINGS: Please see procedure note for details. Fluoro time: 33.8 seconds RADIATION DOSE DELIVERED: Ka,r=17.59 mGy
[2024-03-27 08:22] VITALS: BP 156/85; PULSE 70; RESP 20; TEMP 36.7; O2SAT 94
[2024-03-27 08:56] VITALS: PULSE 66; O2SAT 97
[2024-03-27 08:57] VITALS: BP 144/87; PULSE 71; RESP 16; O2SAT 96
[2024-03-27 09:00] VITALS: PULSE 72; RESP 14; O2SAT 95
[2024-03-27 09:01] VITALS: BP 148/91; PULSE 71; PULSE 73; RESP 14; O2SAT 96
--- NOTE | 2024-03-27 09:10 | PDOC.PAIN ---
Date of service: 03/27/24 Time of Service: 09:11 Pain Managment Procedure Note Procedure Note Procedure Note: PROCEDURE NOTE RIGHT L4 TRANSFORAMINAL EPIDURAL STEROID INJECTION Chief Complaint: RIGHT leg pain. Date of Service: March 27, 2024 Patient: Phoenix Mosquera Provider: Arron Johnson DO, MPH Phoenix Mosquera has been referred to the [facility] for a transforaminal epidural steroid injection. Pre-operative diagnosis: Lumbosacral Radiculopathy ICD-10 M54.17 Post-operative diagnosis: Same Pre-Procedure Pain: VAS= 6/10 Comments: I previously evaluated the patient in our clinic and their symptoms remain the same as they were at that time. He had this procedure on 11/16/23 and had >3 months of >50% improvement in his pain. This pain has returned. Phoenix was interviewed and the medical record reviewed. There were no medical, pharmacologic, radiographic or other structural contraindications to attempting a fluoroscopically-guided transforaminal lumbar epidural steroid injection. The risks, benefits, and potential side effects were reviewed with the patient. Risks include, but are not limited to, [id number] headache, infection, bleeding, nerve injury, spinal cord damage, allergic reaction, possible increase in symptoms over the ensuing 24 to 48 hours, paralysis, and . The patient appeared to understand, questions were answered to the patient?s satisfaction and the patient agreed to proceed. Once I obtained informed verbal consent, the printed consent form was signed by the patient and myself. A standard time-out procedure was performed. Phoenix was placed in the prone position on the fluoroscopy table and automated blood pressure cuff, three lead EKG, and pulse oximeter were applied. The skin entry point for entering/approaching the Right L4 space for the transforaminal epidural steroid injection was marked. Following thorough chlorhexadine preparation of the skin and draping, 2 ml of 1% lidocaine was infiltrated into the skin over the entry point and subcutaneous tissues. Under fluoroscopic guidance, in ipsilateral oblique view, a co-axial approach using a 5 22G spinal needle was advanced to the base of the right L4 pedicle. The needle was advanced to the superio-posterior aspect of the neural foramen under lateral view. Oblique and AP views were rechecked. Under AP and lateral views, 1 ml of Omnipaque-240 was injected while visualized with fluoroscopy. There was no evidence of intravascular or intrathecal uptake, the epidural space was delineated. Next 1.5 ml of preservative-free Dexamethasone (10 mg/ml) was injected after negative aspiration. This was followed by 1 ml of preservative-free 1% lidocaine. (49 mls of Omnipaque-240 was wasted) There was no unusual discomfort expressed by Phoenix. The needle was withdrawn without difficulty. Phoenix was observed and was without hemodynamic, neurologic, or allergic reactions.? Fluoroscopic images were digitally archived. Phoenix's vital signs were stable throughout the procedure and were as recorded in the docflowsheet by the nursing staff.? If given, dosages of intravenous drugs for anxiolysis and analgesia were documented in MAR. Follow up plans and appointments were discussed with Phoenix. Post procedure instruction was given as documented in nursing records and having met discharge criteria Phoenix was discharged from the [facility]. COMMENTS: Post-procedure pain: VAS= 6/10. Phoenix to contact [facility] as needed. If at least 50% improvement in pain and/or function for at least 3 months is achieved, this procedure can be repeated. I personally performed this entire procedure. ARRON JOHNSON DO, MPH ABPMR-subspecialty board certification in Pain Medicine [facility]
[2024-03-27] MEDS: Omnipaque 240 MG/ML 50 ML BTL IJ (09:15)
[2024-03-27] MEDS: Nerve Block Tray 1 EACH MC (09:15)
[2024-03-27] MEDS: Dexamethasone Sod. Phos./Pres-Free 10 MG/ML VIAL IJ (09:16)
== END 2024-03-27 08:08 | disposition home or self-care (01) ==
LOC: PC 08:07
PROVIDERS: PCP Internal Medicine; Visit Provider Preventive Medicine Occupational Medicine
DX: M54.50 Low back pain, unspecified (principal); M54.17 Radiculopathy, lumbosacral region
CPT/HCPCS: 64483; 72100; J1100; Q9967

== ENCOUNTER 2024-04-18 09:40 | Outpatient (CLI) | payer MEDICARE, MEDICAID, SELFPAY ==
--- NOTE | 2024-04-18 09:15 | DI.RAD_ITS ---
Exam(s) XR KNEE RT 4V AP,LAT,KARINA,PAT EXAM: XR KNEE RT 4V AP,LAT,KARINA,PAT CLINICAL HISTORY: Right knee pain - no history of imaging Rt knee Pain in Rt ankle M25.571. TECHNIQUE: 2D digital imaging was performed. Three views. COMPARISON: CR XR KNEE LT 3V AP,LAT,KARINA from 03/22/2022 FINDINGS: BONES: No acute fracture is present. No bony destructive lesion is seen. JOINTS: The knee is normally aligned. No joint effusion is seen. Mild spurring at the articular asp ect of the patella. SOFT TISSUE: Normal. IMPRESSION: Mild degenerative changes of the patellofemoral joint. DATA REPOSITORY: RADIATION DOSE DELIVERED:
== END 2024-04-18 10:00 ==
PROVIDERS: PCP Internal Medicine; Visit Provider Preventive Medicine Occupational Medicine
DX: M25.571 Pain in right ankle and joints of right foot (principal)
CPT/HCPCS: 73564

== ENCOUNTER 2024-05-15 07:22 | Outpatient (CLI) | payer MEDICARE, MEDICAID, SELFPAY ==
--- NOTE | 2024-05-15 06:00 | DI.RAD_ITS ---
Exam(s) XR PAIN CLINIC FLUORO JOINT IN EXAM: XR PAIN CLINIC FLUORO JOINT IN CLINICAL HISTORY: DX: Right knee Osteoarthritis. TECHNIQUE: Fluoroscopy was provided for the referring physician for guidance with performing pain cl inic injection procedure. COMPARISON: No exams were available for comparison FINDINGS: Please see procedure note for details. Fluoro time: 1 seconds RADIATION DOSE DELIVERED: mami Zavala=0.52 mGy
[2024-05-15 07:32] VITALS: BP 109/76; PULSE 71; RESP 20; TEMP 37; O2SAT 94
[2024-05-15 08:12] VITALS: PULSE 62
[2024-05-15] MEDS: Nerve Block Tray 1 EACH MC (08:23)
[2024-05-15] MEDS: Omnipaque 240 MG/ML 50 ML BTL IJ (08:23)
[2024-05-15] MEDS: methylPREDNISolone ACETATE 40 MG/ML VIAL IJ (08:23)
--- NOTE | 2024-05-15 10:37 | PDOC.PAIN ---
Date of service: 05/15/24 Time of Service: 08:25 Pain Managment Procedure Note Procedure Note Procedure Note: PROCEDURE NOTE RIGHT INTRA-ARTICULAR KNEE JOINT STEROID INJECTION Date of Service: May 15, 2024 Patient:Phoenix Sousa? Provider:? Arron Johnson DO, MPH Phoenix Mosquera has been referred to the [facility] for RIGHT intra-articular knee joint injection. Pre-operative diagnosis: Knee Osteoarthritis ICD-10 M16.9 Post-operative diagnosis: Same Pre-procedure pain: VAS=8/10 COMMENTS: I previously evaluated him in the clinic. His symptoms are unchanged. Phoenix?was interviewed and the medical record was reviewed.? There were no medical, pharmacologic, radiographic or other structural contraindications to attempting fluoroscopically guided RIGHT intra-articular knee joint injection.? Risks and expected side effects as well as potential benefit of the procedure were reviewed with Phoenix, and the patient's voiced concerns were addressed.? The printed consent form was signed.? Standard time-out procedure was performed. Phoenix was placed in the supine position on the fluoroscopy table and the pulse oximeter was applied. The skin entry point for approaching superolateral aspect of the RIGHT patellafemoral area was identified under the most advantageous fluoroscopic view and marked. Following thorough Chlorhexadine preparation of the skin and draping, 1% lidocaine infiltration of the skin entry point and subcutaneous tissues was accomplished using a 1.5 25G needle. Next, the 1.5 25G needle was advanced to the center of the patella in a lateral to medial approach under fluoroscopic guidance into the RIGHT knee joint. Intra-articular placement was confirmed by a clear arthrogram resulting from the injection of 2 ml Omnipaque 240. Next, 40 mg Depo-Medrol mixed with 3 mls of 1% Lidocaine was injected into the joint. This was followed with one ml of 1% lidocaine to clear the needle of any steroid. (48 mls of Omnipaque was wasted). There was no unusual discomfort expressed by Phoenix. The needle was withdrawn without difficulty. Phoenix was observed and was without hemodynamic, neurologic, or allergic reactions.? Fluoroscopic images were digitally archived. Phoenix's vital signs were stable throughout the procedure and were as recorded in the docflowsheet by the nursing staff. If given, dosages of intravenous drugs for anxiolysis and analgesia were documented in MAR. Follow up plans and appointments were discussed with Phoenix.? Post procedure instruction was given as documented in nursing documentation and having met discharge criteria, Phoenix was discharged from the [facility]. COMMENTS: No apparent complications. Post-procedure pain: VAS= 2/10. Phoenix to contact [facility] as needed. If at least 50% improvement in pain and/or function for at least 3 months is achieved, this procedure can be repeated. I personally completed the entire procedure. ARRON JOHNSON DO, MPH ABPM&R - Subspecialty board certification in Pain Medicine [facility] Coding Conscious Sedation used for procedure: No CPT Codes: DRAIN/INJ JOINT/BURSA W/O US - () Right knee Fluoroscopic guidance (non spine inj.) - 44391 ([id number] ~G) Additional Codes: Date of Service (33162) Date of service: 05/15/24
== END 2024-05-15 07:23 | disposition home or self-care (01) ==
LOC: PC 07:22
PROVIDERS: PCP Internal Medicine; Visit Provider Preventive Medicine Occupational Medicine
DX: M17.11 Unilateral primary osteoarthritis, right knee (principal)
CPT/HCPCS: 20600; 77002; J1010; Q9967

== ENCOUNTER 2024-06-11 15:59 | Outpatient (REF) | payer MEDICARE, MEDICAID, SELFPAY ==
[2024-06-11 19:07] LABS: Abs Immature Grans 0.02 10^3/uL (0.0-0.06); Absolute Basophil Count 0.07 10^3/uL (0.0-0.2); Absolute Eosinophil Count 0.07 10^3/uL (0.0-0.7); Absolute Lymphocyte Count 1.71 10^3/uL (1.2-3.4); Absolute Monocyte Count 0.44 10^3/uL (0.1-0.8); Basophils % 1.1 %; Eosinophils % 1.1 %; HCT 45.2 % (40.0-50.0); HGB 14.9 g/dL (13.5-17.5); Immature Grans % 0.3 %; Lymphocytes % 26.7 %; MCV 85 fL (80-95); Monocytes % 6.9 %; Neutrophils % 63.9 %; Platelet Count 248 10^3/uL (130-400); RBC 5.33 10^6/uL (4.36-5.78); RDW 15.7 % (11.8-14.1); RDW-SD 48.1 fL; WBC 6.41 10^3/uL (4.4-10.8)
[2024-06-11 19:19] LABS: ALT 38 U/L (16-63); AST 26 U/L (15-37); Albumin 3.6 g/dL (3.4-5.0); Alkaline Phosphatase 118 U/L (46-116); Anion Gap 5.5 mmol/L (3-11); BUN 17 mg/dL (7-18); Bilirubin, Total 0.5 mg/dL (0.2-1.0); CO2 27.5 mmol/L (21.0-32.0); CREATININE 0.8 mg/dL (0.70-1.30); Calcium 9.2 mg/dL (8.5-10.1); Chloride 108 mmol/L (98-107); Estimated GFR 91.72 (mL/min/1.73m2); Glucose 125 mg/dL (74-106); Potassium 4.1 mmol/L (3.5-5.1); Sodium 141 mmol/L (136-145); Total Protein 7.1 g/dL (6.4-8.2)
[2024-06-13 10:08] LABS: Hepatitis C Ab w Rflx HCV PCR Negative (Negative)
== END 2024-06-11 16:00 | disposition home or self-care (01) ==
LOC: NCHCN 15:59
PROVIDERS: PCP Internal Medicine; Visit Provider Physician Assistant
DX: E78.5 Hyperlipidemia, unspecified (principal); Z11.59 Encounter for screening for other viral diseases
CPT/HCPCS: 80053; 86803; 85025

== ENCOUNTER 2024-06-27 11:45 | Outpatient (CLI) | payer MEDICARE, MEDICAID, SELFPAY ==
--- NOTE | 2024-06-27 06:00 | DI.RAD_ITS ---
Exam(s) XR PAIN CLINIC FLUORO JOINT IN EXAM: XR PAIN CLINIC FLUORO JOINT IN CLINICAL HISTORY: DX: Right Knee Osteoarthritis. TECHNIQUE: Fluoroscopy was provided for the referring physician for guidance with performing pain cl inic injection procedure. COMPARISON: No exams were available for comparison FINDINGS: Please see procedure note for details. Fluoro time: 30.0 seconds RADIATION DOSE DELIVERED: mami Zavala=2.13 mGy
[2024-06-27 11:56] VITALS: BP 134/81; PULSE 73; RESP 20; TEMP 36.6; O2SAT 95
[2024-06-27 12:26] VITALS: PULSE 71; O2SAT 95
[2024-06-27 12:30] VITALS: PULSE 74; O2SAT 96
--- NOTE | 2024-06-27 12:39 | PDOC.PAIN ---
Date of service: 06/27/24 Time of Service: 12:39 Pain Managment Procedure Note Procedure Note Procedure Note: PROCEDURE NOTE RIGHT GENICULAR NERVE BLOCKS Date of Service: June 27, 2024 Patient: Phoenix Mosquera Provider: Arron Johnson DO, MPH Phoenix Mosquera has been referred to the [facility] for Right genicular nerve block. Pre-operative diagnosis: Pain in right knee M25.561 Post-operative diagnosis: Same Pre-Procedure Pain: VAS=8/10 COMMENTS: I previously evaluated the patient in the clinic. PROCEDURE: 1. Block of the Superolateral genicular branch from the vastus lateralis 2. Block of the Superomedial genicular branch from the vastus medialis 3. Block of the Inferomedial genicular branch from the saphenous nerve 4. Block of the Terminal branch of the nerve vastus intermedius Phoenix was interviewed and the medical record reviewed. There were no medical, pharmacologic, radiographic or other structural contraindications to attempting fluoroscopically guided Right genicular nerve block. Risks and potential side effects as well as potential benefit of the procedure were reviewed with Phoenix Mosquera , and the patient's voiced concerns were addressed. After I believed that the patient was completely informed, the printed consent form was signed. Standard time-out procedure was performed. After a thorough Chlorhexadine preparation of the skin and draping the skin entry points for approaching Right superolateral genicular nerve, the superomedial genicular nerve, nerve of the vastus intermedius and the inferomedial genicular was identified under the most advantageous fluoroscopic view and marked. Next, 3.5 25G spinal needle was advanced to os at the location of the specific nerve root using fluoroscopic guidance. Next 0.5 cc of 0.5% Bupivacain was injected at each site. There was no unusual discomfort expressed by Phoenix. The needles were withdrawn without difficulty. Phoenix was observed and was without hemodynamic, neurologic, or allergic reactions.? Fluoroscopic images were digitally archived. Phoenix's vital signs were stable throughout the procedure and were as recorded in the docflowsheet by the nursing staff. If given, dosages of intravenous drugs for anxiolysis and analgesia were documented in MAR. Follow up plans and appointments were discussed. Phoenix was instructed to keep careful note of how the usual pain was modified by these injections. Specifically, Phoenix was asked to keep a pain diary for the next 4 hours using a numeric pain scale of 0-10 and report these results. Post procedure instruction was given as documented in nursing documentation and having met discharge criteria, Phoenix was discharged from the [facility]. COMMENTS: No apparent complications. Post-procedure pain: VAS= 0/10. Phoenix will call back with 0-4 hour post-procedure pain scores. I personally completed the entire procedure. ARRON JOHNSON DO, MPH ABPM&R - Subspecialty board certification in Pain Medicine [facility] Coding Conscious Sedation used for procedure: No CPT Codes: SI Joint Inj; incl Fluoro * BILATERAL* - [id number] ([id number]~G5) Additional Codes: Date of Service (21835) Date of service: 06/27/24
[2024-06-27] MEDS: Bupivacaine 0.5% Pres-Free 10 ML VIAL IJ (12:44)
[2024-06-27] MEDS: Omnipaque 240 MG/ML 50 ML BTL IJ (12:45)
[2024-06-27] MEDS: Nerve Block Tray 1 EACH MC (12:45)
== END 2024-06-27 11:46 | disposition home or self-care (01) ==
LOC: PC 11:46
PROVIDERS: PCP Internal Medicine; Visit Provider Preventive Medicine Occupational Medicine
DX: M25.561 Pain in right knee (principal)
CPT/HCPCS: 27096; 64454; 77002; J0665; Q9967

== ENCOUNTER 2024-07-11 07:08 | Outpatient (CLI) | payer MEDICARE, MEDICAID, SELFPAY ==
--- NOTE | 2024-07-11 06:00 | DI.RAD_ITS ---
Exam(s) XR PAIN CLINIC LUMBAR SP 2V EXAM: XR PAIN CLINIC LUMBAR SP 2V CLINICAL HISTORY: DX: Lumbar Radiculopathy. TECHNIQUE: Fluoroscopy was provided for the referring physician for guidance with performing pain cl inic injection procedure. COMPARISON: No exams were available for comparison FINDINGS: Please see procedure note for details. Fluoro time: 32.1 seconds RADIATION DOSE DELIVERED: Ka,r=17.7 mGy
[2024-07-11 07:30] VITALS: BP 116/82; PULSE 69; RESP 20; TEMP 36.6; O2SAT 95
[2024-07-11 08:05] VITALS: PULSE 69; RESP 19; O2SAT 94
[2024-07-11 08:06] VITALS: BP 143/87; PULSE 64; PULSE 67; RESP 18; O2SAT 93
[2024-07-11 08:10] VITALS: PULSE 70; PULSE 71; RESP 17; O2SAT 93
[2024-07-11 08:16] VITALS: BP 157/97; PULSE 70; RESP 17; O2SAT 95
--- NOTE | 2024-07-11 08:19 | PDOC.PAIN_ITS ---
Date of service: 07/11/24 Time of Service: 08:19 Pain Managment Procedure Note Procedure Note Procedure Note: PROCEDURE NOTE RIGHT L4 TRANSFORAMINAL EPIDURAL STEROID INJECTION Chief Complaint: RIGHT leg pain. Date of Service: July 11, 2024 Patient: Phoenix Mosquera Provider: Arron Johnson DO, MPH Phoenix Mosquera has been referred to the [facility] for a transforaminal epidural steroid injection. Pre-operative diagnosis: Lumbosacral Radiculopathy ICD-10 M54.17 Post-operative diagnosis: Same Pre-Procedure Pain: VAS= 6/10 Comments: I previously evaluated the patient in our clinic and their symptoms remain the same as they were at that time. He last had this procedure on 03/27/24 and had >50% pain improvement for >3 months. Phoenix was interviewed and the medical record reviewed. There were no medical, pharmacologic, radiographic or other structural contraindications to attempting a fluoroscopically-guided transforaminal lumbar epidural steroid injection. The risks, benefits, and potential side effects were reviewed with the patient. Risks include, but are not limited to, [id number] headache, infection, bleeding, nerve injury, spinal cord damage, allergic reaction, possible increase in symptoms over the ensuing 24 to 48 hours, paralysis, and . The patient appeared to understand, questions were answered to the patient?s satisfaction and the patient agreed to proceed. Once I obtained informed verbal consent, the printed consent form was signed by the patient and myself. A standard time-out procedure was performed. Phoenix was placed in the prone position on the fluoroscopy table and automated blood pressure cuff, three lead EKG, and pulse oximeter were applied. The skin entry point for entering/approaching the right L4 space for the transforaminal epidural steroid injection was marked. Following thorough chlorhexadine preparation of the skin and draping, 2 ml of 1% lidocaine was infiltrated into the skin over the entry point and subcutaneous tissues. Under fluoroscopic guidance, in ipsilateral oblique view, a co-axial approach using a 5 22G spinal needle was advanced to the base of the right L4 pedicle. The needle was advanced to the superio-posterior aspect of the neural foramen under lateral view. Oblique and AP views were rechecked. Under AP and lateral views, 1 ml of Omnipaque-240 was injected while visualized with fluoroscopy. There was no evidence of intravascular or intrathecal uptake, the epidural space was delineated. Next 1.5 ml of preservative-free Dexamethasone (10 mg/ml) was injected after negative aspiration. This was followed by 1 ml of preservative- free 1% lidocaine. (49 mls of Omnipaque-240 was wasted) There was no unusual discomfort expressed by Phoenix. The needle was withdrawn without difficulty. Phoenix was observed and was without hemodynamic, neurologic, or allergic reactions.? Fluoroscopic images were digitally archived. Phoenix's vital signs were stable throughout the procedure and were as recorded in the docflowsheet by the nursing staff.? If given, dosages of intravenous drugs for anxiolysis and analgesia were documented in MAR. Follow up plans and appointments were discussed with Phoenix. Post procedure instruction was given as documented in nursing records and having met discharge criteria Phoenix was discharged from the [facility]. COMMENTS: Post-procedure pain: VAS= 2/10. Phoenix to contact [facility] as needed. If at least 50% improvement in pain and/or function for at least 3 months is achieved, this procedure can be repeated. I personally performed this entire procedure. ARRON JOHNSON DO, MPH ABPMR-subspecialty board certification in Pain Medicine [facility] Coding Conscious Sedation used for procedure: No CPT Codes: Transforaminal Lumbar/Sacral (includes fluoro) - 38563 ([id number] ~G) Additional Codes: Date of Service (27017) Date of service: 07/11/24
[2024-07-11 08:22] VITALS: BP 138/83; PULSE 67
[2024-07-11] MEDS: Nerve Block Tray 1 EACH MC (08:24)
[2024-07-11] MEDS: Omnipaque 240 MG/ML 50 ML BTL IJ (08:24)
[2024-07-11] MEDS: Dexamethasone Sod. Phos./Pres-Free 10 MG/ML VIAL IJ (08:24)
== END 2024-07-11 07:09 | disposition home or self-care (01) ==
LOC: PC 07:08
PROVIDERS: PCP Internal Medicine; Visit Provider Preventive Medicine Occupational Medicine
DX: M54.17 Radiculopathy, lumbosacral region (principal); M54.50 Low back pain, unspecified
CPT/HCPCS: 64483; 72100; J1100; Q9967

== ENCOUNTER 2024-10-01 12:12 | Outpatient (CLI) | payer MEDICARE, MEDICAID, SELFPAY ==
--- NOTE | 2024-10-01 08:15 | DI.MRI_ITS ---
Exam(s) MR LUMBAR SPINE WO EXAM: MR LUMBAR SPINE WO CLINICAL HISTORY: Right L5 radiculopathy,rt lumbar radiculitis,m54.16. TECHNIQUE: Multiplanar multisequence MRI of the Lumbar spine was performed. COMPARISON: MR MRI LUMBAR WO from 11/08/2018 FINDINGS: We will continue with the same numbering system as indicated on the MRI of the lumbar spine from 11/08/2018. The L5-S1 disc space is identified on the axial image 20 series 8001. Bones: The last intervertebral disc space is designated the L5/S1 level for the numbering purpose of this examination. There are degenerative endplate signal changes throughout the lumbar spine. There are Schmorl's nodes seen at the superior endplates of L2 and L3 and the inferior endplate of T12. There are endplate osteophytes at multiple levels of the lumbar spine. There is disc space narrowing at L1-L2 and L2-L3. There is a left convex lumbar scoliosis. There are perineural root sleeve cysts in the sacrum. Cord: It is of normal size and signal intensity. It ends at L1. T12-L1: No disc herniations or bulges are present. No central spinal canal or neural foraminal stenosis. L1-2: No disc herniations or bulges are present. There is narrowing of the central spinal canal predominantly on the left.There is marked left neural foraminal stenosis. No significant right neural foraminal stenosis is present. L2-3: No disc herniations or bulges are present. There is mild narrowing of the central spinal canal.There is marked right and mild left neural foraminal stenosis. L3-4: There is a diffuse disc bulge. There are degenerative changes of the facets with hypertrophy of the ligamentum flavum. There is moderate narrowing of the central spinal canal. There is marked bilateral neural foraminal stenosis, right greater than left. L4-5: There is a diffuse disc bulge. There are hypertrophic changes of the facets. There is marked narrowing of the central spinal canal. There is marked narrowing of the right neural foramen with compression of the exiting nerve root. Moderately severe stenosis is seen in the left neural foramen. L5-S1: There is a mild diffuse disc bulge. There are degenerative changes of the facets at this level. The findings result in moderately severe central spinal canal stenosis. There is moderately severe right and moderate left neural foraminal stenosis. Soft tissues: The visualized SI joints and sacrum are well maintained. The paraspinal soft tissues are unremarkable. Visualized abdominal organs: There are bilateral simple renal cysts. No follow- up is recommended. They show homogeneous T2 hyperintense signal and homogeneous T1 hypointense signal. IMPRESSION: 1. Marked multilevel degenerative changes in the lumbar spine. 2. At L5-S1 there is moderately severe central spinal canal stenosis and bilateral neural foraminal stenosis, right greater than left. 3. At L4-L5 there is marked central spinal canal stenosis and bilateral neural foraminal stenosis, right greater than left. 4. Please see the above discussion for complete details on the other levels. DATA REPOSITORY:
== END 2024-10-01 12:32 ==
LOC: DI 12:27
PROVIDERS: PCP Internal Medicine; Visit Provider Preventive Medicine Occupational Medicine
DX: M51.360 Other intervertebral disc degeneration, lumbar region with discogenic back pain only (principal)
CPT/HCPCS: 72148

== ENCOUNTER 2024-11-11 13:07 | Outpatient (CLI) | payer MEDICARE, MEDICAID, SELFPAY ==
--- NOTE | 2024-11-11 06:00 | DI.RAD_ITS ---
Exam(s) XR PAIN CLINIC LUMBAR SP 2V EXAM: XR PAIN CLINIC LUMBAR SP 2V CLINICAL HISTORY: DX: Lumbar Radiculopathy. TECHNIQUE: Fluoroscopy was provided for the referring physician for guidance with performing pain clinic injection procedure. COMPARISON: No exams were available for comparison FINDINGS: Please see procedure note for details. Fluoro time: 31.2 seconds RADIATION DOSE DELIVERED: Ka,r=12.9 mGy
[2024-11-11 13:36] VITALS: BP 139/78; PULSE 77; RESP 20; TEMP 36.9; O2SAT 95
--- NOTE | 2024-11-11 14:17 | PDOC.PAIN_ITS ---
Date of service: 11/11/24 Time of Service: 14:22 Pain Managment Procedure Note Procedure Note Procedure Note: Caudal Epidural Steroid Injection ? Location: Caudal Epidural Space ?Pre-procedure Diagnosis: M54.17-Radiculopathy, lumbosacral region ? Post-procedure Diagnosis:? The same as above ? Sedation:? none? Estimated blood loss:? less than 2 cc ?Surgeon:? Lamberto Christy MD COMMENT: Patient had updated MRI 10/01/2024-. At L5-S1 there is moderately severe central spinal canal stenosis and bilateral neural foraminal stenosis, right greater than left. 3. At L4-L5 there is marked central spinal canal stenosis and bilateral neural foraminal stenosis, right greater than left.. He has pain most from his knee down to his foot on the right. He has had transforaminal injection without sign ificant relief. ? Procedure Detail:?? The procedure and potential risks were explained to the patient and informed written consent was obtained. The patient was escorted to the procedure room and placed in the prone position. Pillows were utilized for proper positioning and comfort. Time out was performed in the procedure room with nursing staff confirming the patient's identity, procedure to be performed, allergies, and any blood thinning or anti-platelet medications. The patient's lower back/coccyx area was prepped with ChloraPrep x2 and draped in a sterile fashion. Sterile technique was maintained throughout the procedure.? Sterile gloves were used, a face mask was worn, and new single dose vials of all medications were used with the top being swabbed with alcohol and given time to dry prior to withdrawal of medication. Subcutaneous 1% lidocaine was instilled into the superficial soft tissue of the patient's lower back/coccyx area for local anesthesia using a 25-gauge 1.5 inch needle. Under fluoroscopic guidance a 17G Tuohy needle was placed within the caudal canal. An 19 G Arrow catheter was directed cephalad to the midline at S1. 1cc of Omnipaque 240 contrast was injected showing appropriate spread in the caudal epidural space.? Placement was confirmed in AP and lateral projection. 80 mg of Depo-Medrol and 3 ml saline was injected without complication. The needle and catheter was removed intact. The patient tolerated the procedure well and was transported to the recovery area for observation and discharge instructions. Permanent images saved and recorded. Plan:? Follow prn. PAIN: PRE-PROCEDURE 08/29 POST-PROCEDURE 05/30 COMMENT: Could not pass the catheter past S1. Could repeat if gets good relief that lasts otherwise consider two-level transforaminal on the right at L4 and L5. Coding Conscious Sedation used for procedure: No CPT Codes: Inj Spine L/S w/Imaging - 64791 ([id number] ~G) Additional Codes: Date of Service (32422) Date of service: 11/11/24 Diagnoses: M54.17-Radiculopathy, lumbosacral region
[2024-11-11 14:20] VITALS: PULSE 83; O2SAT 91
[2024-11-11] MEDS: Omnipaque 240 MG/ML 50 ML BTL IJ (14:21)
[2024-11-11] MEDS: methylPREDNISolone ACETATE 40 MG/ML VIAL IJ (14:22)
[2024-11-11] MEDS: Epidural Tray 1 EACH MC (14:23)
== END 2024-11-11 13:08 | disposition home or self-care (01) ==
LOC: PC 13:07
PROVIDERS: PCP Internal Medicine; Visit Provider Anesthesiology Pain Medicine
DX: M54.50 Low back pain, unspecified (principal); M54.17 Radiculopathy, lumbosacral region
CPT/HCPCS: 62323; 72100; J1010; Q9967

== ENCOUNTER 2025-02-18 13:17 | Outpatient (REF) | payer MEDICARE, MEDICAID, SELFPAY ==
[2025-02-18 19:42] LABS: Abs Immature Grans 0.02 10^3/uL (0.0-0.06); HCT 41.7 % (40.0-50.0); HGB 13.2 g/dL (13.5-17.5); Immature Grans % 0.3 %; MCH 27.3 pg (27.0-33.0); MCHC 31.7 % (32.0-36.0); MCV 86 fL (80-95); MPV 9.7 fL (8.0-11.0); Platelet Count 239 10^3/uL (130-400); RBC 4.83 10^6/uL (4.36-5.78); RDW 13.9 % (11.8-14.1); RDW-SD 44.1 fL; WBC 6.43 10^3/uL (4.4-10.8)
[2025-02-18 19:53] LABS: Hemoglobin A1C 6.2 % (<5.7)
[2025-02-18 19:54] LABS: ALT 22 U/L (10-49); AST 31 U/L (<34); Albumin 4.0 g/dL (3.2-5.0); Alkaline Phosphatase 116 U/L (46-116); Anion Gap 7.5 mmol/L (3-11); BUN 12 mg/dL (9-23); Bilirubin, Total 0.5 mg/dL (0.2-1.2); CO2 26.5 mmol/L (20.0-31.0); Calcium 8.7 mg/dL (8.3-10.6); Chloride 108 mmol/L (98-107); Glucose 126 mg/dL (74-106); Potassium 4.1 mmol/L (3.5-5.1); Sodium 142 mmol/L (136-145); Total Protein 7.0 g/dL (5.7-8.2)
[2025-02-19 18:32] LABS: Hepatitis C Ab w Rflx HCV PCR Negative (Negative)
== END 2025-02-18 13:18 | disposition home or self-care (01) ==
LOC: NCHCN 13:17
PROVIDERS: PCP Internal Medicine; Visit Provider Physician Assistant
DX: Z51.81 Encounter for therapeutic drug level monitoring (principal); E78.5 Hyperlipidemia, unspecified; R73.03 Prediabetes; Z20.5 Contact with and (suspected) exposure to viral hepatitis
CPT/HCPCS: 80053; 80361; 80362; 80365; 86803; 83036; 85025